=== PATIENT | male | born 1975 | race African-American/Black ===

== ENCOUNTER → 2023-03-22 | Emergency (ER) | payer OTHER ==
[~2023-03-22] MED LIST: GABAPENTIN 300 MG CAP ONE; HYDROCODONE/APAP 10/325 TAB ONE; IBUPROFEN 400 MG TAB ONE
--- NOTE | 2023-03-22 09:25 | EDPHYS ---
Physician Documentation [facility] Name: Jeffrey Galindo Age: 47 yrs Sex: Male : 1975 Arrival Date: 03/22/2023 Time: 08:06 Bed 13 Private MD: ED Physician Benjamin Reyes HPI: 03/22 08:50 This 47 yrs old Black Male presents to ER via EMS with complaints of Toothache. rn 08:50 The patient presents with pain, swelling. The problem is located in the Left upper rn tooth. Onset: The symptoms/episode began/occurred 1 week(s) ago. Duration: The symptoms are intermittent. Modifying factors: The symptoms are alleviated by nothing, the symptoms are aggravated by chewing. Associated signs and symptoms: Pertinent positives: pain, swelling, Pertinent negatives: fever. Severity of symptoms: At their worst the symptoms were moderate, in the emergency department the symptoms are unchanged. The patient has experienced similar episodes in the past. Patient reports tooth ache left upper tooth for 1 week, woke up this morning with swelling to left cheek. No fever or chills. No difficulty eating or swallowing. No difficulty breathing.. Historical: - Allergies: 08:21 No Known Allergies; ll1 - PMHx: 08:21 None; ll1 - Immunization history:: Adult Immunizations up to date. - Social history:: Smoking status: Patient denies any tobacco usage or history of. - Family history:: not pertinent. - Hospitalizations: : No recent hospitalization is reported. ROS: 08:50 Constitutional: Negative for fever, chills, and weight loss, ENT: Positive for dental rn pain and left cheek swelling Cardiovascular: Negative for chest pain, palpitations, and edema, Respiratory: Negative for shortness of breath, cough, wheezing, and pleuritic chest pain, Exam: 08:50 Constitutional: This is a well developed, well nourished patient who is awake, alert, rn appears in pain ENT: Poor dentition, left upper tooth with deep cavity, no evidence of gingival abscess. Soft and nonfluctuant swelling of the left buccal space without evidence of abscess. No trismus Vital Signs: 08:15 BP 137 / 86; Pulse 57; Resp 17; Temp 99.2(O); Pulse Ox 99% ; rs5 08:21 BP 134 / 84; Pulse 51; Resp 16; Temp 99.3; Pulse Ox 100% ; Pain 10/10; ll1 09:34 BP 135 / 83; Pulse 62; Resp 18; Temp 98(O); Pulse Ox 99% on R/A; rs5 08:21 Pain Scale: Adult ll1 MDM: 08:11 Patient medically screened. rn 09:23 Differential diagnosis: dental caries. Differential diagnosis: Cellulitis, buccal space rn cellulitis, facial cellulitis. Data reviewed: vital signs, nurses notes. Counseling: I had a detailed discussion with the patient and/or guardian regarding the historical points, exam findings, and any diagnostic results supporting the discharge/admit diagnosis, the need for outpatient follow up, to return to the emergency department if symptoms worsen or persist or if there are any questions or concerns that arise at home. Response to treatment: the patient's symptoms have mildly improved after treatment. Special discussion: I discussed with the patient/guardian in detail that at this point there is no indication for admission to the hospital. It is understood, however, that if the symptoms persist or worsen the patient needs to return immediately for re-evaluation. Special discussion: Based on the history and exam findings, there is no indication for further emergent testing or inpatient evaluation. I discussed with the patient/guardian the need to see a dentist for further evaluation of the symptoms. Administered Medications: 08:43 Drug: [place] PO 10 mg-325 mg 1 tabs PO once Route: PO; rs5 09:30 Follow up: Response: No adverse reaction; Pain is decreased rs5 08:43 Drug: Gabapentin PO 300 mg PO once Route: PO; rs5 09:30 Follow up: Response: No adverse reaction rs5 08:43 Drug: Clindamycin PO 300 mg PO once Route: PO; rs5 09:30 Follow up: Response: No adverse reaction rs5 08:43 Drug: Ibuprofen PO 800 mg PO once Route: PO; rs5 09:30 Follow up: Response: No adverse reaction rs5 Disposition Summary: 03/22/23 09:24 Discharge Ordered Notes: Location: Home rn Problem: new rn Symptoms: have improved rn Condition: Stable rn Diagnosis - Dental caries, unspecified rn - Cellulitis of face rn Followup: rn - With: Private Physician - When: As needed - Reason: Recheck today's complaints, Re-evaluation by your physician Discharge Instructions: - Discharge Summary Sheet rn - Cellulitis, Adult rn - Dental Caries, Adult rn Forms: - Medication Reconciliation Form rn - Thank You Letter rn - Antibiotic rn medical inpatient services - Prescription Opioid Use rn - Patient Portal Instructions rn - Leadership Thank You Letter rn Prescriptions: - Clindamycin HCl 300 mg Oral Capsule - take 1 capsule ORAL route every 6 hours for 10 days; 40 capsule; Refills: 0, rn Product Selection Permitted - Ibuprofen 800 mg Oral Tablet - take 1 tablet ORAL route every 12 hours As needed take with food; 20 tablet; rn Refills: 0, Product Selection Permitted - Tramadol 50 mg Oral Tablet - take 1 tablet ORAL route every 8 hours as needed; 12 tablet; Refills: 0, rn Product Selection Permitted Signatures: Benjamin Reyes MD MD rn Lewis, Lynsay RN RN ll1 Robinson Fernando RN RN rs5
--- NOTE | 2023-03-22 09:25 | ER ---
Nurse's Notes [facility] Name: Jeffrey Galindo Age: 47 yrs Sex: Male : 1975 Arrival Date: 03/22/2023 Time: 08:06 Bed 13 Private MD: Diagnosis: Dental caries, unspecified;Cellulitis of face Presentation: 03/22 08:10 Chief complaint: Patient states: L jaw pain toothache x 4 days. + swelling EMS states: ll1 VSS. Coronavirus screen: Client denies travel out of the [place] in the last 14 days. At this time, the client does not indicate any symptoms associated with coronavirus-19. Ebola Screen: Patient denies travel to an Ebola-affected area in the 21 days before illness onset. Initial Sepsis Screen: Does the patient meet any 2 criteria? No. Patient's initial sepsis screen is negative. Does the patient have a suspected source of infection? Yes: Other: tooth pain. Risk Assessment: Do you want to hurt yourself or someone else? Patient reports no desire to harm self or others. Onset of symptoms was March 19, 2023. 08:10 Method Of Arrival: EMS ll1 08:10 Acuity: SHERITA 4 ll1 Triage Assessment: 08:11 General: Appears uncomfortable, Behavior is calm, cooperative, appropriate for age. ll1 Pain: Complains of pain in jaw Quality of pain is described as aching, throbbing. EENT: Reports pain in L jaw swelling. Historical: - Allergies: 08:21 No Known Allergies; ll1 - PMHx: 08:21 None; ll1 - Immunization history:: Adult Immunizations up to date. - Social history:: Smoking status: Patient denies any tobacco usage or history of. - Family history:: not pertinent. - Hospitalizations: : No recent hospitalization is reported. Screenin:15 [facility] ED Fall Risk Assessment (Adult) History of falling in the last 3 months, rs5 including since admission No falls in past 3 months (0 pts) Confusion or Disorientation No (0 pts) Intoxicated or Sedated No (0 pts) Impaired Gait No (0 pts) Mobility Assist Device Used No (0 pt) Altered Elimination No (0 pt) Score/Fall Risk Level 0 - 2 = Low Risk Oriented to surroundings, Maintained a safe environment. Abuse screen: Denies threats or abuse. Nutritional screening: No deficits noted. Tuberculosis screening: No symptoms or risk factors identified. Assessment: 08:15 General: Appears in no apparent distress. uncomfortable, Behavior is calm, cooperative. rs5 Pain: Pain: Complains of pain in right jaw Pain does not radiate. Pain currently is 7 out of 10 on a pain scale. Quality of pain is described as aching, Pain began 2-3 days ago. Is continuous. 08:15 Neuro: Level of Consciousness is awake, alert, obeys commands, Oriented to person, rs5 place, time, situation. 08:15 General: Swelling noted to right jaw. Swelling and redness noted to inside of right rs5 jaw, no signs of infection noted. Cardiovascular: Patient's skin is warm and dry. Rhythm is regular. Respiratory: Airway is patent Respiratory effort is even, unlabored, Respiratory pattern is regular, symmetrical, Breath sounds are clear bilaterally. GI: Abdomen is round non-distended, Bowel sounds present X 4 quads. Abd is soft and non tender X 4 quads. : No signs and/or symptoms were reported regarding the genitourinary system. EENT: No signs and/or symptoms were reported regarding the EENT system. Derm: Skin is intact, Skin is dry, Skin is normal, Skin temperature is warm. Musculoskeletal: Circulation, motion, and sensation intact. Range of motion: intact in all extremities. 09:33 Reassessment: Patient and/or family updated on plan of care and expected duration. Pain rs5 level reassessed. Patient is alert, oriented x 3, equal unlabored respirations, skin warm/dry/pink. Patient states feeling better. Patient states symptoms have improved. Vital Signs: 08:15 BP 137 / 86; Pulse 57; Resp 17; Temp 99.2(O); Pulse Ox 99% ; rs5 08:21 BP 134 / 84; Pulse 51; Resp 16; Temp 99.3; Pulse Ox 100% ; Pain 10/10; ll1 09:34 BP 135 / 83; Pulse 62; Resp 18; Temp 98(O); Pulse Ox 99% on R/A; rs5 08:21 Pain Scale: Adult ll1 ED Course: 08:10 Patient arrived in ED. ll1 08:10 Arm band placed on. ll1 08:11 Triage completed. ll1 08:11 Benjamin Reyes MD is Attending Physician. rn 08:15 Patient has correct armband on for positive identification. Placed in gown. Bed in low rs5 position. Call light in reach. Side rails up X2. 08:15 No provider procedures requiring assistance completed. rs5 08:22 Robinson Fernando, BELLA is Primary Nurse. rs5 09:35 Patient did not have IV access during this emergency room visit. rs5 Administered Medications: 08:43 Drug: [place] PO 10 mg-325 mg 1 tabs PO once Route: PO; rs5 09:30 Follow up: Response: No adverse reaction; Pain is decreased rs5 08:43 Drug: Gabapentin PO 300 mg PO once Route: PO; rs5 09:30 Follow up: Response: No adverse reaction rs5 08:43 Drug: Clindamycin PO 300 mg PO once Route: PO; rs5 09:30 Follow up: Response: No adverse reaction rs5 08:43 Drug: Ibuprofen PO 800 mg PO once Route: PO; rs5 09:30 Follow up: Response: No adverse reaction rs5 Medication: 09:35 VIS not applicable for this client. rs5 Outcome: 09:24 Discharge ordered by . rn 09:35 Discharged to home ambulatory, with family, rs5 09:35 Condition: stable 09:35 Discharge instructions given to patient, Instructed on discharge instructions, follow up and referral plans. medication usage, Demonstrated understanding of instructions, follow-up care, medications, Prescriptions given X 3, 09:41 Patient left the ED. rs5 Signatures: Benjamin Reyes MD MD rn Lewis, Lynsay, RN RN 1 Robinson Fernando, BELLA RN rs5 Corrections: (The following items were deleted from the chart) 08:21 08:10 Chief complaint: Patient states: R jaw pain toothache x 4 days. + swelling EMS ll1 states: VSS ll1 08:22 08:11 EENT: Reports pain in right jaw swelling ll1 ll1 09:33 08:15 Pain: rs5 rs5
[2023-03-22 16:00] VITALS: BP 135/83; TEMP 98; O2SAT 99
== END ==
LOC: ER 08:06
DX: K02.9 Dental caries, unspecified (principal); L03.211 Cellulitis of face